=== PATIENT | female | born 1975 ===

== ENCOUNTER → 2018-11-06 19:13 | Outpatient (REF) | payer OTHER, MEDICAID, SELFPAY ==
[2018-11-06 19:58] LABS: Add Manual Diff / Slide Review NO; Basophils Absolute Auto 0 /uL (0-100); Basophils Percent Auto 0.7 % (0-2); Eosinophils Absolute Auto 0 /uL (0-450); Hemoglobin 12.7 g/dL (12.0-16.0); Lymphocytes Absolute Auto 1500 /uL (1100-4500); Lymphocytes Percent Auto 31.9 % (25-40); Mean Corpuscular HGB Conc 34.3 % (30-36); Mean Corpuscular Volume 101.9 fL (80-100); Monocytes Absolute Auto 600 /uL (0-900); Monocytes Percent Auto 11.6 % (3-14); Neutrophils Absolute Auto 2600 /uL (1500-7000); Neutrophils Percent Auto 54.8 % (50-75); Platelet Count 122 X10^3/uL (150-400); Red Blood Cell Count 3.63 X10^6/uL (4.0-5.2); Red Cell Distribution Width 14.1 % (11.6-14.8); White Blood Cell Count 4.8 X10^3/uL (4.5-11.0)
[2018-11-06 20:38] LABS: HEMOLYSIS < 15 (0-50)
[2018-11-06 20:45] LABS: Alanine Aminotransferase 145 IU/L (9-52); Albumin 4.8 g/dL (3.5-5.0); Albumin Globulin Ratio 1.5 (1.0-2.8); Alkaline Phosphatase 133 U/L (38-126); Aspartate Aminotransferase 242 IU/L (14-36); BUN Creatinine Ratio 8.6 (6-22); Bilirubin Total 2.4 mg/dL (0.2-1.3); Blood Urea Nitrogen 6 mg/dL (7-17); Calcium 9.9 mg/dL (8.4-10.2); Carbon Dioxide 26 mmol/L (22-32); Chloride 100 mmol/L (98-107); Cholesterol 240 mg/dL (140-199); Estimated Glomerular Filt Rate > 60.0 mL/min (>60); Globulin 3.3 g/dL (1.7-4.1); Glucose 99 mg/dL (70-100); HDL Cholesterol 95 mg/dL (40-60); LDL Cholesterol Calculated 126 mg/dL (<100); Potassium 3.7 mmol/L (3.4-5.1); Sodium 139 mmol/L (137-145); Total Protein 8.1 g/dL (6.3-8.2); Triglycerides 94 mg/dL (35-150)
[2018-11-06 21:19] LABS: Thyroid Stimulating Hormone 4.39 uIU/mL (0.47-4.68)
[2018-11-06 21:26] LABS: Follicle Stimulating Hormone 8.91 mIU/mL; Luteinizing Hormone 9.44 mIU/mL
[2018-11-09 16:06] LABS: Progesterone 0.7 ng/mL
[2018-11-09 16:10] LABS: Estradiol 28 pg/mL
[2018-11-09 16:12] LABS: Hepatitis A Antibody IgM NONREACTIVE (NONREACTIVE); Hepatitis B Core Antibody IgM NONREACTIVE (NONREACTIVE); Hepatitis B Surface Antigen NONREACTIVE (NONREACTIVE); Hepatitis C Antibody NONREACTIVE
== END ==
LOC: LAB 19:13
PROVIDERS: Visit Provider Physician Assistant Medical
DX: N92.6 Irregular menstruation, unspecified (principal); D50.9 Iron deficiency anemia, unspecified; R53.83 Other fatigue; R94.5 Abnormal results of liver function studies; Z00.00 Encounter for general adult medical examination without abnormal findings; Z13.220 Encounter for screening for lipoid disorders
CPT/HCPCS: 36415; 80053; 80061; 80074; 82670; 83001; 83002; 84144; 84443; 85025